=== PATIENT | male | born 1955 | race Caucasian/White ===

== ENCOUNTER 2019-06-27 10:23 | Observation (INO) ==
[2019-06-27] MEDS ORDERED: DESYREL PO PRN (13:26)
[2019-06-27] MEDS ORDERED: SODIUM CHLORIDE 0.9% INJ PRN (13:26)
[2019-06-27] MEDS ORDERED: PHENERGAN IV PRN (13:26)
[2019-06-27] MEDS ORDERED: ROCEPHIN 1 GM in NS 50 ML IV SCH (13:26)
[2019-06-27] MEDS ORDERED: TYLENOL PO PRN (13:26)
[2019-06-27] MEDS: LEVAQUIN 500 MG/D5W 500 MG/100 ML IVPB IV SCH (14:48)
[2019-06-27] MEDS: SOLU-MEDROL IV SCH ×2 (14:48→21:36)
[2019-06-27 15:01] LABS: BASO# 0.15 X1000 (0.0-0.2); BASO% 1.5 % (0.0-0.8); EOS# 0.38 X1000 (0.0-0.7); EOS% 3.9 % (0.0-10.0); HEMATOCRIT 40.4 % (42.0-52.0); HEMOGLOBIN 13.5 g/dL (14.0-18.0); IMM GRAN# 0.02 X1000 (0.0-0.04); IMM GRAN% 0.2 % (0.0-0.5); LYMPH# 2.48 X1000 (1.2-3.4); LYMPH% 25.3 % (20.5-51.1); MCH 29.8 PG (27-31); MCHC 33.4 g/dL (33-37); MCV 89.2 FL (81-99); MONO# 1.04 X1000 (0.11-0.59); MONO% 10.6 % (1.7-9.3); MPV 10.1 FL (7.4-10.4); NEUT# 5.73 X1000 (1.4-6.5); NEUT% 58.5 % (42.2-75.2); PLT 231 X1000 (130-400); RBC 4.53 XMIL (4.7-6.1); RDW 14.5 % (11.5-14.5)
[2019-06-27 15:31] LABS: AGAP 13; BUN 18 mg/dL (8-22); CALCIUM 8.9 mg/dL (8.8-10.2); CHLORIDE 104 mmol/L (98-107); COSMO 283; CREATININE 0.7 mg/dL (0.7-1.2); ESTIMATED GFR > 60; GLUCOSE 101 mg/dL (70-104); POTASSIUM 3.5 mmol/L (3.5-5.1); SODIUM 141 mmol/L (136-145); TCO2 24 mmol/L (25-35)
[2019-06-27] MEDS: DUONEB (A & A) INH SCH ×4 (16:11→23:31)
[2019-06-27] MEDS: LIPITOR PO SCH (21:36)
[2019-06-28] MEDS: DUONEB (A & A) INH SCH ×6 (03:24→23:14)
[2019-06-28] MEDS: SOLU-MEDROL IV SCH ×3 (04:37→20:50)
[2019-06-28] MEDS ORDERED: PREVNAR 13 IM ONE (07:05)
--- NOTE | 2019-06-28 09:10 | PROGRESS NOTE ---
DATE: 06/28/2019 SUBJECTIVE: Mr. Paul Perez is a 63-year-old gentleman who was admitted to [facility] with an acute chronic obstructive pulmonary disease exacerbation. Clinically, he feels better this morning. He continues with a persistent cough and wheezing. He is breathing more comfortably. O2 saturations are ranging from 93% to 94 percent on room air. OBJECTIVE: Vitals: Temperature 98.1 degrees, pulse 105, respiratory rate 12, blood pressure 124/54. Cardiovascular: Regular rate and rhythm. No murmur noted. Lungs: Scattered wheezing throughout all areas of the lung, but has improved air movement as compared to admission. Abdomen: Soft, nontender, with active bowel sounds. No hepatosplenomegaly. No abdominal bruits. Extremities: Without edema. LABS: CBC demonstrated WBC 9.8, hemoglobin 13.5, hematocrit 40.4, and a platelet count of 231,000. Electrolytes demonstrate the following: Sodium 141, potassium 3.5, chloride 104, CO2 24, BUN 18, creatinine 0.7, and glucose 101. ASSESSMENT AND PLAN: Acute chronic obstructive pulmonary disease exacerbation with tracheobronchitis. Clinically he is better this morning. We will continue methylprednisolone 80 mg IV q.8 hours, DuoNeb nebulizer treatments and intravenous Levaquin. I am going to add Symbicort 80/4.5 two puffs b.i.d., and will arrange for pulmonary function tests as an outpatient. We will administer the Prevnar vaccination prior to discharge. cc: Suly Gottlieb MD
[2019-06-28] MEDS: PRISTIQ ER PO SCH (09:25)
[2019-06-28] MEDS: SYMBICORT 80/4.5 MICROGM INHALER INH SCH ×2 (09:26→19:56)
[2019-06-28] MEDS: LEVAQUIN 500 MG/D5W 500 MG/100 ML IVPB IV SCH (13:54)
[2019-06-29] MEDS: LIPITOR PO SCH (00:53)
[2019-06-29] MEDS: DUONEB (A & A) INH SCH ×2 (04:26→08:20)
[2019-06-29] MEDS: SOLU-MEDROL IV SCH (05:33)
[2019-06-29] MEDS ORDERED: VENTOLIN HFA INH PRN (08:07)
[2019-06-29] MEDS: SYMBICORT 80/4.5 MICROGM INHALER INH SCH (08:20)
[2019-06-29] MEDS: PRISTIQ ER PO SCH (08:25)
[2019-06-29 08:56] VITALS: BP 144/70
[2019-06-29] MEDS ORDERED: LEVAQUIN PO SCH (09:00)
--- NOTE | 2019-06-29 20:24 | DISCHARGE SUMMARY ---
ADMISSION DATE: 06/27/2019 DISCHARGE DATE: 06/29/2019 DISCHARGE DIAGNOSES: 1. Acute chronic obstructive pulmonary disease exacerbation. 2. Nicotine dependence with nicotine induced disorders. 3. Major depression. 4. Mixed hyperlipidemia. DISCHARGE INSTRUCTIONS: 1. Return to clinic in 2 weeks to see me, Dr. Arnol Gottlieb. 2. Activity as tolerated. 3. Regular diet. 4. Medications, trazodone 50 mg at bedtime p.r.n. insomnia, levofloxacin 500 mg daily for 5 days, Pristiq ER 100 mg daily, Symbicort 80/4.5 mcg inhaler 2 puffs b.i.d., atorvastatin 10 mg at bedtime, Ventolin HFA inhaler 2 puffs q.6 hours p.r.n. shortness of breath. DISCHARGE PHYSICAL EXAM: This is a well-developed, well-nourished, 63-year-old gentleman in no apparent distress. Temperature 97.7 degrees, pulse 87, respirations 14, BP 137/69. CV: Regular rate and rhythm. Lungs: Clear. Abdomen: Soft, nontender with active bowel sounds. Mr. Paul Perez was admitted to [facility] with an acute COPD exacerbation. He was treated with supplemental O2, DuoNeb nebulizer treatments q.4 hours, intravenous methylprednisolone and IV Levaquin. Over the course of his hospitalization, he made significant clinical improvement. His cough, shortness of breath and wheezing resolved. He was weaned off steroids without regression of his symptoms. We added Symbicort 80/4.5 two puffs b.i.d. I reminded him to gargle well after using the Symbicort so as not to develop thrush. He was ambulating in the halls without shortness of breath, pleurisy or fits of coughing. His chest x- ray was clear. A Prevnar 13 vaccination was administered on 06/28/2019. He does currently smoke. We talked about the importance of smoking cessation. He understands that to continue to smoke will increase his risk of lung disease, lung cancer, heart disease and stroke. He has tried Chantix in the remote past but had significantly bad dreams on it. We talked about Zyban or the use of nicotine patches. He reports that he has only had 2 cigarettes since Monday. He does not want to try medications at this time. He will continue Symbicort 80/4.5 two puffs b.i.d. and use some Ventolin HFA inhaler 2 puffs q.6 hours p.r.n. shortness of breath and coughing. We will arrange for pulmonary function tests pre and post bronchodilator therapy as an outpatient. Having reached maximum hospital benefit, the patient was discharged in stable condition. cc: Suly Gottlieb MD
== END 2019-06-29 10:07 | disposition home or self-care (01) | DRG 192 ==
LOC: DIRADM 10:23 → INTOOBSV 10:23 → EDIPHOLD 13:06 → 3N 16:51
PROVIDERS: ADMIT Internal Medicine; ATTEND Internal Medicine